=== PATIENT | male | born 1995 | race Caucasian/White ===

== ENCOUNTER 2016-12-27 21:21 | Emergency (ER) | payer BC ==
[2016-12-27 21:10] LABS: BASOPHIL# 0.1 X10e3 (0-0.3); BASOPHIL% 1.2 % (0-2.5); DIFF IND NO; EOSINOPHIL# 0.5 X10e3 (0-0.7); EOSINOPHIL% 6.4 % (0.0-7.0); HEMATOCRIT 43.7 % (38.0-50.0); HEMOGLOBIN 14.9 gm/dL (13.0-16.0); LYMPHOCYTE# 2.8 X10e3 (1.0-3.5); LYMPHOCYTE% 37.8 % (17.0-45.0); MEAN CELL VOLUME 83.2 FL (83-96); MEAN CORPUSCULAR HEMOGLOBIN 28.4 PG (28-34); MEAN CORPUSCULAR HGB CONC 34.1 g/dL (30-36); MEAN PLATELET VOLUME 8.3 FL (6.5-11.5); MONOCYTE# 0.6 X10e3 (0-1.0); MONOCYTE% 7.6 % (3.0-12.0); NEUTROPHIL# 3.5 X10e3 (1.5-7.1); PLATELET COUNT 237 X10e3 (140-420); RED BLOOD COUNT 5.26 X10e (3.90-5.60); RED CELL DISTRIBUTION WIDTH 13.8 % (11.0-15.5); WHITE BLOOD COUNT 7.4 X10e3 (4.0-10.5)
[~2016-12-27 21:21] MED LIST: BENTYL20 MG; CELEXA20 MG PO; FLEXERIL10 MG PO; HYDROCODON-ACE1 EAC5 PO; LORTAB 5-325 M1 EACH PO; NO MEDICATIONS; PRILOSEC; REGLAN5 MG; VOLTAREN75 MG PO; ZANTAC150 MG PO; ZOFRAN ODT4 MG/UDTAB PO
[2016-12-27 21:25] LABS: ALBUMIN SERUM 4.3 g/dL (3.5-5.0); ALKALINE PHOSPHATASE 63 U/L (32-92); ALT (SGPT) 35 U/L (10-40); AST (SGOT) 26 U/L (10-42); BILIRUBIN, DIRECT 0.1 mg/dL (0.0-0.2); BILIRUBIN,INDIRECT 0.4 mg/dL (0.0-0.9); BILIRUBIN,TOTAL 0.5 mg/dL (0.2-2.0); BLOOD UREA NITROGEN 12 mg/dL (9-23); BUN/CREATININE RATIO 17.14; CALCIUM SERUM 8.9 mg/dL (8.4-10.2); CARBON DIOXIDE 26 mmol/L (22-31); CHLORIDE 105 mmol/L (100-111); CREATININE SERUM 0.7 mg/dL (0.6-1.4); GLOM FILT RATE Estimated ABOVE60 mL/min (>60); GLUCOSE FASTING 102 mg/dL (70-110); LIPASE 46 U/L (22-51); POTASSIUM 3.7 mmol/L (3.5-5.1); SODIUM 139 mmol/L (135-145)
[2017-01-25] MEDS ORDERED: AMOXICILLIN875 MG PO (09:24)
== END 2016-12-27 21:54 | disposition home or self-care (01) ==
LOC: SED 21:21
PROVIDERS: Physician Assistant
DX: K29.00 Acute gastritis without bleeding (principal); R03.0 Elevated blood-pressure reading, without diagnosis of hypertension; F17.200 Nicotine dependence, unspecified, uncomplicated
CPT/HCPCS: 36415; 80048; 80076; 83690; 85025; 96361; 96374; 96375; 99284; C9113; J2405

== ENCOUNTER 2017-01-23 20:22 | Emergency (ER) | payer BC ==
--- NOTE | ~2017-01-23 | CR63 ---
[facility] A Service [facility] RADIOLOGY TEXT RESULTS PATIENT: ROMY PAIZ LOCATION: SED : [birth year] UNIT #: [id number] AGE: [address]: Rox Bryan APRN SEX: M ORDER DR: [id number] [place] [id number] MR#: [id number] Acc #: [id number] NAME: ROMY PAIZ : 1995 SEX: M STUDY DATE/TIME: 01/23/2017 20:22 UNIT: SED ROOM: STUDY DESCRIPTION: CR Chest 2 View Attending Physician: Rox Bryan A.P.R.N. Referring Physician: Rox Bryan A.P.R.N. Ordering Physician: Rox Lewis A.P.R.N. Primary Care Physician: Rosa Primary Care Physician MEDICAL IMAGING REPORT This report is preliminary unless electronic signature is present. EXAM Two-view chest. HISTORY Fever, body aches, sore throat x2 months. COMPARISON STUDIES FINDINGS PA and lateral examination of the chest upright shows a good expansion of the parenchyma with a normal distribution of the pulmonary vascularity. There is no indication of congestion, effusion, infiltrate, tumor, or nodular density. The pleural reflections and diaphragmatic contours are normal. The cardiac silhouette and mediastinal anatomy is within normal limits. IMPRESSION Normal chest. Dictated by... Horace Gamez M.D. THIS IS AN ELECTRONICALLY VERIFIED REPORT Horace Gamez M.D. at 01/24/2017 10:52 PM CLAYTON/josh TD: 01/24/2017 11:45 JOB #: [id number] [facility] A Service [facility] RADIOLOGY TEXT RESULTS PATIENT: ROMY PAIZ LOCATION: SED : [birth year] UNIT #: [id number] AGE: [address]: Rox Bryan APRN SEX: M ORDER DR: MEDICAL IMAGING REPORT Page 1 of 1
[2017-01-23 20:30] LABS: INFLUENZA A NEG (NEG); INFLUENZA B NEG (NEG)
[2017-01-25] MEDS ORDERED: AMOXICILLIN875 MG PO (09:24)
== END 2017-01-23 20:52 | disposition home or self-care (01) ==
LOC: SED 20:22
PROVIDERS: Nurse Practitioner
DX: B34.9 Viral infection, unspecified (principal); F17.210 Nicotine dependence, cigarettes, uncomplicated; Z88.1 Allergy status to other antibiotic agents
CPT/HCPCS: 71020; 87651; 87804; 99283